=== PATIENT | male | born 1950 | race Caucasian/White ===

== ENCOUNTER 2022-01-26 18:11 | Outpatient (REF) | payer MEDICARE, OTHER, SELFPAY ==
[2022-01-26 19:10] LABS: Influenza A PCR NEGATIVE (Negative); Influenza B PCR NEGATIVE (Negative); Resp Syncy Virus RNA Qual PCR NEGATIVE (Negative); SARS COV2 PCR INHOUSE NEGATIVE (Negative)
== END 2022-01-26 18:12 | disposition home or self-care (01) ==
LOC: HO.LNP 18:11
PROVIDERS: Visit Provider Internal Medicine
DX: J06.9 Acute upper respiratory infection, unspecified (principal); Z20.822 Contact with and (suspected) exposure to COVID-19
CPT/HCPCS: 0241U